=== PATIENT | female | born 1995 | race Caucasian/White ===

== ENCOUNTER 2018-12-23 21:02 | Emergency (ER) | payer OTHER ==
[~2018-12-23] VITALS: Ht 162.6 cm; Wt 61.2 kg
[2018-12-23 21:04] VITALS: BP 129/83
[2018-12-23] MEDS ORDERED: KETOROLAC 30 MG/1 ML IM ONE (21:30)
[2018-12-23] MEDS ORDERED: METHOCARBAMOL 750 MG TABLET PO ONE (21:30)
[2018-12-23] MEDS ORDERED: METHOCARBAMOL 750 MG TABLET ONE ×2 (21:31→23:04)
[2018-12-23] MEDS ORDERED: KETOROLAC 30 MG/1 ML ONE (21:31)
--- NOTE | 2018-12-23 22:18 | NUR ---
PT TO CT.
[2018-12-23] MEDS ORDERED: ACETAMINOPHEN 500 MG TABLET ONE (23:04)
--- NOTE | 2018-12-23 23:08 | NUR ---
ALL RESULTS BACK. UP FOR RECHECK.
--- NOTE | 2018-12-23 23:16 | NUR ---
PA AT BEDSIDE FOR RECHECK.
[2018-12-23] MEDS ORDERED: HYDROcodone/APAP 5/325 TABLET ONE (23:21)
[2018-12-23] MEDS ORDERED: HYDROcodone/APAP 5/325 TABLET PO ONE (23:30)
== END 2018-12-23 23:30 | disposition home or self-care (01) ==
LOC: ED 23:24
DX: S16.1XXA Strain of muscle, fascia and tendon at neck level, initial encounter (principal); S33.5XXA Sprain of ligaments of lumbar spine, initial encounter; M50.221 Other cervical disc displacement at C4-C5 level; V49.59XA Passenger injured in collision with other motor vehicles in traffic accident, initial encounter; Y93.89 Activity, other specified; Y92.89 Other specified places as the place of occurrence of the external cause; Y99.8 Other external cause status
CPT/HCPCS: 72110; 72125; 96372; 99284; J1885